=== PATIENT | female | born 1930 | race Caucasian/White ===

== ENCOUNTER 2018-05-10 09:45 | Emergency (ER) | payer OTHER ==
[~2018-05-10] VITALS: Ht 160 cm; Wt 99.8 kg
[2018-05-10 09:45] VITALS: BP 0/0
[~2018-05-10 09:45] MED LIST: CALCIUM CHLORIDE 10% 100 MG/ML SYR IVP ONE; EPINEPHrine PFS 0.1 MG/ML SYR IVP ONE; SODIUM BICARBONATE 8.4% PFS 50 MEQ/50 ML SYR IVP ONE
--- NOTE | 2018-05-10 09:45 | NUR ---
Note reji in EDM - 05/10/18 at 1042 by GINA FULL ARREST SEE CODE SHEET. INTUBATED, [address] UPON ARRIVAL. 6 ROUND OF EPI GIVEN EN TRANSIT. ASYSTOLE UPON ARRIVAL. BIBA FROM HOME
--- NOTE | 2018-05-10 09:45 | NUR ---
PT BIBA FULL ARREST
--- NOTE | 2018-05-10 09:45 | NUR ---
Radha mendoza in [facility] - 05/10/18 at 1019 by GINA SEE MITCHEL SHEET
--- NOTE | 2018-05-10 09:45 | NUR ---
FULL ARREST SEE CODE SHEET. INTUBATED, [address] 2 IN R LOWER LEG AND 1 IN L LOWER LEG UPON ARRIVAL. 6 ROUND OF EPI GIVEN EN TRANSIT. ASYSTOLE UPON ARRIVAL. BIBA FROM HOME COMPRESSIONS INITIATED BY ALS TEAM, PER FIRE " SHE HAS BEEN DOWN FOR 45 MIN" , COMPRESSIONS CONTINUED UPON ARRIVAL.
--- NOTE | 2018-05-10 10:20 | NUR ---
FAMILY AT BEDSIDE AT THIS TIME.
--- NOTE | 2018-05-10 10:23 | NUR ---
[facility] CALLED SPOKE TO EARL WILL NOT BE MOVING FORWARD . REFERRAL #: [id number]
--- NOTE | 2018-05-10 10:29 | NUR ---
DR. CAICEDO OFFICE CONTACTED SPOKE WITH JOSÉ MIGUEL THEY SAID " WE WILL HAVE TO CALL THE DOCTOR TO SEE IF HE WILL SIGN AND RELEASE HER". PROVIDED WITH PHONE NUMBER, JOSÉ MIGUEL TO CALL BACK
--- NOTE | 2018-05-10 10:35 | NUR ---
CALLED CORPORATE RELATIONS DIRECTOR SPOKE TO [place] WHO STATED " DEPUTY WILL GIVE YOU A CALL BACK WITH CASE NUMBER".
--- NOTE | 2018-05-10 10:38 | NUR ---
DR. CAICEDO STATED " I DO NOT FEEL COMFORTABLY RELEASING HER BECAUSE SHE WAS SEEN IN THE [facility] TWO DAYS AGO AND SENT HOME , I DO NOT KNOW IF THEY DID THE PROPER WORK UP ON HER, SO I DO NOT FEEL COMFORTABLE RELEASING HER". ER MD DIAZ MADE AWARE.
--- NOTE | 2018-05-10 10:55 | NUR ---
EDUCATION DIAGNOSTICIAN JOSE JUAN TRACY CALLED AND STATED " NOT A CORONERS CASE AT THIS TIME". CASE #: [id number]
--- NOTE | 2018-05-10 11:02 | NUR ---
CALLED SPOKE TO JORDY WHO SAID " THE COUNSELOR WILL FAX OVER A RELEASE FORM FOR THE FAMILY TO SIGN AND ONCE THE FAMILY SAYS THEY ARE READY WE HAVE A 2 HOUR WINDOW TO [employer] ".
--- NOTE | 2018-05-10 11:38 | NUR ---
SPOKE TO DI THE COUNSELOR IN MORTUARY WHO STATED " I WILL FAX OVER THE RELEASE".
--- NOTE | 2018-05-10 12:11 | NUR ---
DEMETRIA FROM [facility] CALLED AND SAID THEY RECEIVED RELEASED, THEY WILL SALES HOST IN 2 HOURS.
--- NOTE | 2018-05-10 13:41 | NUR ---
MORTUARY PERSONNEL ARRIVED AT THIS TIME.
--- NOTE | 2018-05-10 14:30 | NUR ---
pt taken by mortuary
== END 2018-05-10 09:53 | disposition expired ==
LOC: MED 09:45
DX: I46.9 Cardiac arrest, cause unspecified (principal); E11.22 Type 2 diabetes mellitus with diabetic chronic kidney disease; I12.9 Hypertensive chronic kidney disease with stage 1 through stage 4 chronic kidney disease, or unspecified chronic kidney disease; N18.9 Chronic kidney disease, unspecified; J45.909 Unspecified asthma, uncomplicated; Z88.5 Allergy status to narcotic agent
CPT/HCPCS: 92950; 99291; J0171